=== PATIENT | female | born 1990 | race Two or more races ===

== ENCOUNTER 2023-03-06 01:11 | Outpatient (CLI) | payer OTHER ==
[2023-03-06] MEDS ORDERED: IRON236 MG (01:58)
[2023-03-06] MEDS ORDERED: PRENA1 TRUE CO1 EACH (01:58)
[2023-03-06] MEDS ORDERED: CEPHALEXIN750 MG PO (02:00)
== END 2023-03-06 10:16 | disposition home or self-care (01) ==
LOC: OBS/DEL 01:11
PROVIDERS: ATTEND Obstetrics & Gynecology Gynecology
DX: O26.893 Other specified pregnancy related conditions, third trimester (principal); O36.8130 Decreased fetal movements, third trimester, not applicable or unspecified; Z3A.34 34 weeks gestation of pregnancy

== ENCOUNTER 2023-03-28 08:24 | Outpatient (CLI) | payer OTHER ==
[~2023-03-28 08:24] MED LIST: CEPHALEXIN750 MG PO; IRON236 MG; PRENA1 TRUE CO1 EACH
== END 2023-03-28 09:20 | disposition home or self-care (01) ==
LOC: NST 08:24
PROVIDERS: ATTEND Obstetrics & Gynecology Gynecology
DX: Z34.83 Encounter for supervision of other normal pregnancy, third trimester (principal)

== ENCOUNTER 2023-04-04 06:37 | Inpatient (IN) | payer OTHER ==
[~2023-04-04] VITALS: Ht 175.3 cm; Wt 3.6 kg
[2023-04-04] MEDS ORDERED: CEFAZOLIN SODIUM 1,000 MG VIAL IV SCH (06:45)
[2023-04-04] MEDS ORDERED: CITRIC ACID/SODIUM CITRATE 30 ML BLIST.PACK PO SCH (06:45)
[2023-04-04] MEDS ORDERED: RINGERS SOLUTION,LACTATED 1,000 ML IV SCH (06:45)
[2023-04-04 07:59] LABS: PH,URINE 6.5 (5.0-8.0); URINE APPEARANCE Cloudy; URINE BILIRRUBIN Negative (NEGATIVE); URINE COLOR Yellow; URINE GLUCOSE Negative (NEGATIVE); URINE LEUKOCYTE Large; URINE NITRATE Negative; URINE PROTEIN Trace (NEGATIVE)
[2023-04-04 08:03] LABS: URINE BACTERIA 1978.1 uL (0.0-1933); URINE EPITHELIAL CELLS 106.9 uL (0.0-38.8); URINE WBC 140.6 uL (0.0-23.2)
[2023-04-04 08:05] LABS: HEMOGLOBIN 11.7 g/dL (12.0-15.00); MEAN CELL VOLUME 87.5 fL (80.00-100.00); MEAN CORPUSCULAR HEMOGLOBIN 29.2 pg (27.00-32.0); MEAN CORPUSCULAR HGB CONC 33.4 g/dl (32.0-36.0); PLATELET COUNT 243 K/uL (150-450); RED BLOOD COUNT 3.99 M/uL (4.00-6.00); RED CELL DISTRIBUTION WIDTH 14.9 % (11.5-14.5)
[2023-04-04 08:34] LABS: URINE BLOOD Trace
[2023-04-04 08:36] LABS: URINE EPITHELIAL CELLS 0-4 /HPF; URINE YEAST FEW /hpf
[2023-04-04 08:45] LABS: ALBUMIN 2.8 gm/dL (3.4-5.0); BILIRUBIN TOTAL 0.23 mg/dL (0.3-1.2); CALCIUM 8.9 mg/dL (8.5-10.1); CREATININE SERUM 0.58 mg/dL (0.55-1.02); GFR 119.72; GLOBULINA 3.9 G/DL (2.4-3.5); POTASSIUM 3.71 mEq/L (3.5-5.1); TOTAL PROTEIN 6.7 gm/dL (6.4-8.2)
[2023-04-04] MEDS ORDERED: ERYTHROMYCIN BASE 3.5 GM OINT...G. OP ONE (08:46)
[2023-04-04] MEDS ORDERED: OXYTOCIN 10 UNITS/ML VIAL ONE (08:46)
[2023-04-04 10:23] LABS: INR 0.96; PARTIAL THROMBOPLASTIN TIME 29.9 SECONDS (22.0-34.0); PROTHROMBIN TIME 10.1 SECONDS (9.0-11.5)
[2023-04-04] MEDS ORDERED: MORPHINE SULFATE 4 MG/ML CARTRIDGE IV SCH (10:24)
[2023-04-04] MEDS ORDERED: ERYTHROMYCIN BASE 1 GM TUBE OP ONE (11:30)
[2023-04-04] MEDS ORDERED: OXYTOCIN 10 UNITS/ML VIAL IV ONE (11:30)
[2023-04-04] MEDS ORDERED: KETOROLAC TROMETHAMINE 30 MG VIAL IV SCH (12:00)
[2023-04-04] MEDS ORDERED: KETOROLAC TROMETHAMINE 30 MG VIAL ONE (12:15)
[2023-04-05] MEDS ORDERED: GABAPENTIN 300 MG CAPSULE PO SCH ×2 (01:00→09:00)
[2023-04-05] MEDS ORDERED: IBUprofen 600 MG TABLET PO SCH ×2 (01:00→09:00)
[2023-04-05] MEDS ORDERED: ACETAMINOPHEN 500 MG GEL..CAP PO SCH ×2 (06:00)
[2023-04-05 06:21] LABS: HEMATOCRIT 31.9 % (36.0-45.00); HEMOGLOBIN 10.6 g/dL (12.0-15.00); MEAN CELL VOLUME 88.3 fL (80.00-100.00); MEAN CORPUSCULAR HEMOGLOBIN 29.4 pg (27.00-32.0); MEAN CORPUSCULAR HGB CONC 33.3 g/dl (32.0-36.0); PLATELET COUNT 202 K/uL (150-450); RED BLOOD COUNT 3.61 M/uL (4.00-6.00); RED CELL DISTRIBUTION WIDTH 15.1 % (11.5-14.5)
[2023-04-05] MEDS ORDERED: DOCUSATE SODIUM 100MG CAP PO SCH (09:00)
[2023-04-05] MEDS ORDERED: PNV,CALCIUM 72/IRON/FOLIC ACID 1 TAB TABLET PO SCH (09:00)
[2023-04-05] MEDS ORDERED: SIMETHICONE 125 MG CAPSULE PO SCH (09:00)
[2023-04-05] MEDS ORDERED: LIDOCAINE HCL 100 MG/10ML VIAL ONE (09:34)
[2023-04-05] MEDS ORDERED: ERYTHROMYCIN BASE 1 GM TUBE OP ONE (09:34)
[2023-04-05] MEDS ORDERED: CHLORHEXIDINE GLUCONATE 120 ML BOTTLE TOP ONE (09:34)
[2023-04-06] MEDS ORDERED: MAGNESIUM HYDROXIDE 30 ML BLIST.PACK PO ONE (09:15)
[2023-04-06] MEDS ORDERED: METOCLOPRAMIDE HCL 10 MG TABLET PO SCH (09:15)
== END 2023-04-07 10:04 | disposition home or self-care (01) | DRG 785 ==
LOC: LDR 06:37 → OB/GYN 06:37 → O/R 09:54 → OB/GYN 11:32
PROVIDERS: Obstetrics & Gynecology; ADMIT Obstetrics & Gynecology Gynecology; ATTEND Obstetrics & Gynecology Gynecology
PROC: 0UB70ZZ Excision of Bilateral Fallopian Tubes, Open Approach (ICD-10-PCS; 2023-04-04)
PROC: 4A1HXCZ Monitoring of Products of Conception, Cardiac Rate, External Approach (ICD-10-PCS; 2023-04-04)
PROC: 10D00Z1 Extraction of Products of Conception, Low, Open Approach (ICD-10-PCS; principal; 2023-04-04 09:30)
DX: O32.1XX0 Maternal care for breech presentation, not applicable or unspecified (principal); O34.211 Maternal care for low transverse scar from previous cesarean delivery; Z3A.38 38 weeks gestation of pregnancy; Z37.0 Single live birth; Z20.822 Contact with and (suspected) exposure to COVID-19; Z30.2 Encounter for sterilization